=== PATIENT | male | born 1980 | race Caucasian/White ===

== ENCOUNTER 2018-12-13 23:57 | Emergency (ER) | payer BC ==
[2018-12-14] MEDS ORDERED: Sodium Chloride 0.9% 10 ML Syringe FLUSH PRN (00:05)
[2018-12-14] MEDS: Sodium Chloride 0.9% 1,000 ML IV ONE (00:10)
[2018-12-14] MEDS: Ketorolac 30 MG/ML SDV IVPUSH ONE (00:10)
--- NOTE | 2018-12-14 00:11 | EDM.PDOC ---
ED HPI GENERAL MEDICAL PROBLEM - General Chief Complaint: Back Pain or Injury Stated Complaint: back pain Time Seen by Provider: 12/14/18 00:00 Source of Information: Reports: Patient History Limitations: Reports: No Limitations - History of Present Illness INITIAL COMMENTS - FREE TEXT/NARRATIVE: Patient comes in the emergency department with complaint of lower back pain. Patient states started around 3:00 this afternoon spasm sensation. He states they've never had this feeling before. The pain is bilateral on both sides of the back and does not radiate down the leg region. He is unable to get comfortable tonight. He has difficulty sitting or laying flat. He is most comfortable standing. He denies anything that makes it better or worse. He denies any injury. Patient also denies any chest pain, shortness breath, GI upset, urinary tract symptoms, flank pain, or lower extremity swelling. Onset: Sudden Quality: Reports: Other (muscle spasm ) Severity: Moderate Improves with: Reports: None Worsens with: Reports: None Associated Symptoms: Reports: No Other Symptoms Back Pain Score (Numeric/FACES): 10 - Related Data Allergies Allergy/AdvReac Type Severity Reaction Status Date / Time No Known Allergies Allergy Verified 12/13/18 23:58 Home Meds: Home Meds . [No Known Home Meds] 12/13/18 [History] ED ROS GENERAL - Review of Systems Review Of Systems: ROS reveals no pertinent complaints other than HPI. Constitutional: Reports: No Symptoms Respiratory: Reports: No Symptoms Cardiovascular: Reports: No Symptoms GI/Abdominal: Reports: No Symptoms Musculoskeletal: Reports: Back Pain, Muscle Stiffness Skin: Reports: No Symptoms Neurological: Reports: No Symptoms Psychiatric: Reports: No Symptoms Hematologic/Lymphatic: Reports: No Symptoms ED EXAM, GENERAL - Physical Exam Exam: See Below Exam Limited By: No Limitations General Appearance: Alert, WD/WN, No Apparent Distress Head: Atraumatic, Normocephalic Neck: Normal Inspection, Supple, Non-Tender Respiratory/Chest: No Respiratory Distress, Lungs Clear, No Accessory Muscle Use Cardiovascular: Normal Peripheral Pulses, Regular Rate, Rhythm GI/Abdominal: Normal Bowel Sounds, Soft, Non-Tender, No Distention, No Abnormal Bruit Back Exam: Normal Inspection, Decreased Range of Motion, Muscle Spasm (lower lumbar region across the spine ). No: Full Range of Motion, CVA Tenderness (L) , CVA Tenderness (R), Paraspinal Tenderness, Vertebral Tenderness, Other Extremities: Normal Inspection, Normal Range of Motion, Non-Tender, No Pedal Edema, Normal Capillary Refill Neurological: Alert, Oriented, Normal Gait Psychiatric: Normal Affect, Normal Mood Skin Exam: Warm, Dry, Intact Course - Vital Signs Last Recorded V/S: Last Vital Signs Temp 35.3 C 12/13/18 23:59 Pulse 84 12/13/18 23:59 Resp 20 12/13/18 23:59 BP 143/82 H 12/13/18 23:59 Pulse Ox 98 12/13/18 23:59 - Orders/Labs/Meds Orders: Active Orders 24 hr Category Date Time Status Abdomen Pelvis wo Cont [CT] Stat Exams 12/14/18 00:54 Taken Lumbar Spine wo Cont [CT] Stat Exams 12/14/18 00:54 Taken HYDROmorphone [Dilaudid] Med 12/14/18 03:42 Once 0.5 mg IVPUSH ONETIME ONE Sodium Chloride 0.9% [Saline Flush] Med 12/14/18 00:05 Active 10 ml FLUSH ASDIRECTED PRN Peripheral IV Insertion Adult [OM.PC] Stat Oth 12/14/18 00:04 Ordered Medication Orders Sodium Chloride (Saline Flush) 10 ml FLUSH ASDIRECTED PRN PRN Reason: Keep Vein Open Labs: Laboratory Tests 12/14/18 12/14/18 12/14/18 Range/Units 01:04 01:30 01:30 WBC 8.4 (4.0-10.0) x10^3/uL RBC 4.54 (4.5-6.0) x10^6/uL Hgb 13.7 L (14.0-18.0) g/dL Hct 39.3 L (40.0-52.0) % MCV 86.6 (78.0-93.0) fL MCH 30.2 (26.0-32.0) pg MCHC 34.9 (32.0-36.0) g/dL RDW Coeff of Alicia 11.9 (10.0-15.0) % Plt Count 261 (130-400) x10^3/uL Neut % (Auto) 82.3 H (50.0-80.0) % Lymph % (Auto) 12.8 L (25.0-50.0) % [place] % (Auto) 4.2 (2.0-11.0) % Eos % (Auto) 0.5 (0.0-4.0) % Baso % (Auto) 0.2 (0.2-1.2) % Sodium 140 (136-145) mmol/L Potassium 4.0 (3.5-5.1) mmol/L Chloride 103 (98-107) mmol/L Carbon Dioxide 25 (21-32) mmol/L Anion Gap 16.0 (10-20) mmol/L BUN 12 (7-18) mg/dL Creatinine 1.1 (0.70-1.30) mg/dL Est Cr Clr Drug Dosing TNP Estimated GFR (MDRD) > 60 Glucose 96 (74-106) mg/dL Calcium 9.1 (8.5-10.1) mg/dL Corrected Calcium 9.02 (8.5-10.1) mg/dL Total Bilirubin 0.3 (0.2-1.0) mg/dL AST 23 (15-37) U/L ALT 12 L (16-63) U/L Alkaline Phosphatase 66 (46-116) U/L Total Protein 7.8 (6.4-8.2) g/dL Albumin 4.1 (3.4-5.0) g/dL Globulin 3.7 Albumin/Globulin Ratio 1.11 Urine Color Yellow (YELLOW) Urine Appearance Clear (CLEAR) Urine pH 5.5 (5.0-8.0) Ur Specific [place] <=1.005 Urine Protein Negative (NEGATIVE) mg/dL Urine Glucose (UA) Negative (NEGATIVE) mg/dL Urine Ketones Negative (NEGATIVE) mg/dL Urine Occult Blood Negative (NEGATIVE) Urine Nitrite Negative (NEGATIVE) Urine Bilirubin Negative (NEGATIVE) Urine Urobilinogen 0.2 (0.2) EU/dL Ur Leukocyte Esterase Negative (NEGATIVE) Meds: Medications Generic Name Dose Route Start Last Admin Trade Name Freq PRN Reason Stop Dose Admin Sodium Chloride 10 ml 12/14/18 00:05 Saline Flush FLUSH ASDIRECTED PRN Keep Vein Open Discontinued Medications Generic Name Dose Route Start Last Admin Trade Name Freq PRN Reason Stop Dose Admin Diazepam 5 mg 12/14/18 00:51 12/14/18 00:58 Valium IVPUSH 12/14/18 00:52 5 mg STAT ONE Administration Diazepam 5 mg 12/14/18 03:26 Valium IVPUSH 12/14/18 03:27 STAT ONE Hydromorphone HCl 1 mg 12/14/18 00:14 12/14/18 00:20 Dilaudid IVPUSH 12/14/18 00:15 1 mg ONETIME ONE Administration Hydromorphone HCl 1 mg 12/14/18 01:50 12/14/18 01:56 Dilaudid IVPUSH 12/14/18 01:51 1 mg ONETIME ONE Administration Sodium Chloride 1,000 mls @ 1,000 mls/hr 12/14/18 00:06 12/14/18 00:10 Normal Saline IV 12/14/18 01:05 1,000 mls/hr ONETIME ONE Administration Ketorolac Tromethamine 30 mg 12/14/18 00:05 12/14/18 00:10 Toradol IVPUSH 12/14/18 00:06 30 mg ONETIME ONE Administration Orphenadrine Citrate 60 mg 12/14/18 00:05 12/14/18 00:27 Norflex IM 12/14/18 00:06 60 mg NOW STA Administration - Re-Assessments/Exams Free Text/Narrative Re-Assessment/Exam: 12/14/18 01:50 Pt continues to remain in severe pain. unable to get comfortable. Departure - Departure Time of Disposition: 04:28 Disposition: DC/Tfer to Acute Hospital 02 Condition: Fair Clinical Impression: Acute bilateral back pain Qualifiers: Back pain location: low back pain Sciatica presence: without sciatica Qualified Code(s): M54.5 - Low back pain - Discharge Information *PRESCRIPTION DRUG MONITORING PROGRAM REVIEWED*: Not Applicable *COPY OF PRESCRIPTION DRUG MONITORING REPORT IN PATIENT JUAN C: Not Applicable Forms: ED Department Discharge, Interfacility Transfer EMTALA - Problem List Review Problem List Initiated/Reviewed/Updated: Yes - My Orders Last 24 Hours: My Active Orders 12/14/18 00:04 Peripheral IV Insertion Adult [OM.PC] Stat 12/14/18 00:05 Sodium Chloride 0.9% [Saline Flush] 10 ml FLUSH ASDIRECTED PRN 12/14/18 00:54 Abdomen Pelvis wo Cont [CT] Stat Lumbar Spine wo Cont [CT] Stat 12/14/18 03:42 HYDROmorphone [Dilaudid] 0.5 mg IVPUSH ONETIME ONE - Assessment/Plan Last 24 Hours: My Active Orders 12/14/18 00:04 Peripheral IV Insertion Adult [OM.PC] Stat 12/14/18 00:05 Sodium Chloride 0.9% [Saline Flush] 10 ml FLUSH ASDIRECTED PRN 12/14/18 00:54 Abdomen Pelvis wo Cont [CT] Stat Lumbar Spine wo Cont [CT] Stat 12/14/18 03:42 HYDROmorphone [Dilaudid] 0.5 mg IVPUSH ONETIME ONE Assessment:: 1. low back pain Plan: 1. IV inserted with fluids given in the ER. 2. Norflex, Dilaudid, and Toradol given in the ER help with pain and discomfort. 3. Dr. Shelton consulted regarding case since patient continues to appear extremely uncomfortable and not obtaining much relief. His recommendation is to give Valium 5mg now. After spasms continue with the idea of obtaining a CT scan and UA. He also recommended adding a Lumbar spine recon to the order and general labs. 4. 0340 Radiology called due to long delay. they state they had been calling they are needing axial views 5. [address] completed. 6. Consult with [facility] they agreeable with transfer for further evaluation and management. Pt continues to have uncontrolled back pain with no clear reasoning despite pain medications 7. Pt will be transferred by ambulance 8. All questions and concerns addressed prior to discharge.
[2018-12-14] MEDS: HYDROmorphone 1 MG/ML Syringe IVPUSH ONE ×2 (00:20→01:56)
[2018-12-14] MEDS: diazePAM 5 MG/ML MDV IVPUSH ONE ×2 (00:58→03:44)
[2018-12-14 01:59] LABS: CHLORIDE,CL 103 mmol/L (98-107); SODIUM,NA 140 mmol/L (136-145)
[2018-12-14] MEDS ORDERED: HYDROmorphone 1 MG/ML Syringe IVPUSH ONE (03:42)
[2018-12-14] MEDS: fentaNYL 100 MCG/2 ML SDV IVPUSH ONE (03:52)
--- NOTE | 2018-12-14 10:16 | CT ---
[id number] CT/CT Lumbar Spine WO IV EXAM: AP AND LATERAL LUMBAR SPINE. INDICATION: Back pain. COMPARISON: No previous similar exam is available for comparison. FINDINGS: No fracture or subluxation is seen. No evidence of compression deformity. The pedicles are intact. Mild multilevel degenerative changes of the lumbar spine most pronounced at L4-L5 and L5-S1. No CT evidence of high-grade spinal canal or neuroforaminal stenosis. IMPRESSION: NO ACUTE FRACTURE OR SUBLUXATION. Kain Nguyễn DO 12/14/18 1015 Thank you for allowing us to participate in the care of your patient.
--- NOTE | 2018-12-14 10:19 | CT ---
[id number] CT/CT Abdomen Pelvis WO IV EXAM: CT Abdomen Pelvis WO IV CLINICAL DATA: BACK PAIN COMPARISON STUDY: None. FINDINGS: Lung bases are clear. Liver, spleen, gallbladder, pancreas, adrenal glands, and kidneys are unremarkable. No bowel obstruction or inflammation. No lymphadenopathy, free fluid, or pneumoperitoneum. Scattered changes of spondylosis the spine. No fracture or osseous lesion. IMPRESSION: No significant CT abnormality in the abdomen or pelvis to explain the patient's symptoms. Kain Nguyễn DO 12/14/18 1018 Thank you for allowing us to participate in the care of your patient.
== END 2018-12-14 04:57 | disposition short-term general hospital (02) ==
LOC: VM.ED 23:57
DX: M54.5 Low back pain (principal)
CPT/HCPCS: 36415; 72131; 74176; 80053; 81003; 85025; 96361; 96372; 96374; 96375; 96376; 99285; J1170; J1885; J2360; J3010; J3360; J7030

== ENCOUNTER 2021-01-30 14:34 | Emergency (ER) | payer BC ==
[2021-01-30] MEDS ORDERED: Sodium Chloride 0.9% 1,000 ML IV ONE (14:43)
[2021-01-30] MEDS ORDERED: Sodium Chloride 0.9% 10 ML Syringe FLUSH PRN (14:44)
[2021-01-30] MEDS ORDERED: HYDROmorphone 1 MG/ML Syringe IVPUSH ONE ×2 (14:49→15:59)
[2021-01-30] MEDS ORDERED: Ondansetron 4 MG/2 ML SDV IVPUSH ONE (14:49)
--- NOTE | 2021-01-30 14:58 | EDM.PDOC ---
ED HPI GENERAL MEDICAL PROBLEM - General Chief Complaint: Gastrointestinal Problem Stated Complaint: abdominal pain Time Seen by Provider: 01/30/21 14:40 Source of Information: Reports: Patient History Limitations: Reports: No Limitations - History of Present Illness INITIAL COMMENTS - FREE TEXT/NARRATIVE: Patient comes into the emergency department with right upper quadrant abdominal pain. Patient states that it started abruptly last evening after having some ice cream and after a few hours the discomfort and pain away. However then he had a piece of pizza and the pain was excruciating in the right upper quadrant he was unable to get comfortable and to rest. He ended up getting diaphoretic nauseated and vomited multiple times. He states that this lasted for approxi mately 6 hours he is finally able go to bed this morning around 6 AM and woke up without any difficulty. He was feeling well without any difficulties or nauseating or abdominal pain and ended up having a piece of cheese and began to have significant discomfort in the right upper quadrant again leading to nausea and vomiting again. Patient presents to the emergency room department with extreme/severe right upper quadrant pain Onset: Sudden - Related Data Allergies Allergy/AdvReac Type Severity Reaction Status Date / Time No Known Allergies Allergy Verified 12/13/18 23:58 Home Meds: Home Meds . [No Known Home Meds] 12/13/18 [History] Past Medical History - Past Health History Medical/Surgical History: Denies Medical/Surgical History ED ROS GENERAL - Review of Systems Review Of Systems: See Below Constitutional: Reports: No Symptoms HEENT: Reports: No Symptoms Respiratory: Reports: No Symptoms Cardiovascular: Reports: No Symptoms Endocrine: Reports: No Symptoms GI/Abdominal: Reports: Abdominal Pain, Nausea, Vomiting : Reports: No Symptoms Musculoskeletal: Reports: No Symptoms Skin: Reports: No Symptoms Neurological: Reports: No Symptoms Psychiatric: Reports: No Symptoms Hematologic/Lymphatic: Reports: No Symptoms Immunologic: Reports: No Symptoms ED EXAM, GENERAL - Physical Exam Exam: See Below Exam Limited By: No Limitations General Appearance: Alert, WD/WN, No Apparent Distress Head: Atraumatic, Normocephalic Neck: Normal Inspection, Supple, Non-Tender, Full Range of Motion Respiratory/Chest: No Respiratory Distress, Lungs Clear, Normal Breath Sounds, No Accessory Muscle Use, Chest Non-Tender Cardiovascular: Normal Peripheral Pulses, Regular Rate, Rhythm, No Edema, No Murmur GI/Abdominal: Normal Bowel Sounds, Non-Tender, No Distention, No Abnormal Bruit, No Mass Back Exam: Normal Inspection, Full Range of Motion Extremities: Normal Inspection, Normal Range of Motion, Non-Tender, Normal Capillary Refill Neurological: Alert, Oriented, Normal Gait Skin Exam: Warm, Dry, Intact #1 Interpretation EKG Date: 01/30/21 Rhythm: NSR Brinson: Normal P-Wave: Present QRS: Normal ST-T: Normal QT: Normal Comparison: NA - No Prior EKG Course - Orders/Labs/Meds Orders: Active Orders 24 hr Category Date Time Status EKG Documentation Completion [RC] STAT Care 01/30/21 15:05 Active Sodium Chloride 0.9% [Saline Flush] Med 01/30/21 14:44 Active 10 ml FLUSH ASDIRECTED PRN Peripheral IV Insertion Adult [OM.PC] Stat Oth 01/30/21 14:44 Ordered Medication Orders Sodium Chloride (Sodium Chloride 0.9% 10 Ml Syringe) 10 ml FLUSH ASDIRECTED PRN PRN Reason: Keep Vein Open Labs: Laboratory Tests 01/30/21 01/30/21 01/30/21 Range/Units 14:51 14:51 14:51 WBC 11.0 H (4.0-10.0) x10^3/uL RBC 5.14 (4.5-6.0) x10^6/uL Hgb 15.8 D (14.0-18.0) g/dL Hct 43.9 (40.0-52.0) % MCV 85.4 (78.0-93.0) fL MCH 30.7 (26.0-32.0) pg MCHC 36.0 (32.0-36.0) g/dL RDW Coeff of Alicia 12.4 (10.0-15.0) % Plt Count 301 (130-400) x10^3/uL Neut % (Auto) 79.0 (50.0-80.0) % Lymph % (Auto) 12.5 L (25.0-50.0) % [place] % (Auto) 8.0 (2.0-11.0) % Eos % (Auto) 0.4 (0.0-4.0) % Baso % (Auto) 0.1 L (0.2-1.2) % PT 9.7 L (9.9-12.5) SEC INR 0.9 L (2.0-3.5) Sodium 139 (136-145) mmol/L Potassium 3.4 L (3.5-5.1) mmol/L Chloride 104 (98-107) mmol/L Carbon Dioxide 24 (21-32) mmol/L Anion Gap 14.4 (5-15) mmol/L BUN 15 (7-18) mg/dL Creatinine 1.2 (0.70-1.30) mg/dL Est Cr Clr Drug Dosing TNP Estimated GFR (MDRD) > 60 Glucose 99 (70-99) mg/dL Lactic Acid (0.4-2.0) mmol/L Calcium 9.2 (8.5-10.1) mg/dL Corrected Calcium 9.1 (8.5-10.1) mg/dL Total Bilirubin 1.4 H (0.2-1.0) mg/dL AST 93 H (15-37) U/L ALT 67 H (16-63) U/L Alkaline Phosphatase 60 (46-116) U/L C-Reactive Protein 1.1 H (<=0.9) mg/dL Total Protein 7.9 (6.4-8.2) g/dL Albumin 4.1 (3.4-5.0) g/dL Globulin 3.8 Albumin/Globulin Ratio 1.08 Amylase 50 (25-115) U/L Lipase 111 (73-393) U/L /02/12 Range/Units 14:51 WBC (4.0-10.0) x10^3/uL RBC (4.5-6.0) x10^6/uL Hgb (14.0-18.0) g/dL Hct (40.0-52.0) % MCV (78.0-93.0) fL MCH (26.0-32.0) pg MCHC (32.0-36.0) g/dL RDW Coeff of Alicia (10.0-15.0) % Plt Count (130-400) x10^3/uL Neut % (Auto) (50.0-80.0) % Lymph % (Auto) (25.0-50.0) % [place] % (Auto) (2.0-11.0) % Eos % (Auto) (0.0-4.0) % Baso % (Auto) (0.2-1.2) % PT (9.9-12.5) SEC INR (2.0-3.5) Sodium (136-145) mmol/L Potassium (3.5-5.1) mmol/L Chloride (98-107) mmol/L Carbon Dioxide (21-32) mmol/L Anion Gap (5-15) mmol/L BUN (7-18) mg/dL Creatinine (0.70-1.30) mg/dL Est Cr Clr Drug Dosing Estimated GFR (MDRD) Glucose (70-99) mg/dL Lactic Acid 2.2 H* (0.4-2.0) mmol/L Calcium (8.5-10.1) mg/dL Corrected Calcium (8.5-10.1) mg/dL Total Bilirubin (0.2-1.0) mg/dL AST (15-37) U/L ALT (16-63) U/L Alkaline Phosphatase (46-116) U/L C-Reactive Protein (<=0.9) mg/dL Total Protein (6.4-8.2) g/dL Albumin (3.4-5.0) g/dL Globulin Albumin/Globulin Ratio Amylase (25-115) U/L Lipase (73-393) U/L Meds: Medications Generic Name Dose Route Start Last Admin Trade Name Freq PRN Reason Stop Dose Admin Sodium Chloride 10 ml 01/30/21 14:44 Sodium Chloride 0.9% 10 Ml Syringe FLUSH ASDIRECTED PRN Keep Vein Open Discontinued Medications Generic Name Dose Route Start Last Admin Trade Name Freq PRN Reason Stop Dose Admin Ceftriaxone Sodium 1 gm 01/30/21 15:51 Ceftriaxone 1 Gm Vial IVPUSH 01/30/21 15:52 STAT ONE Hydromorphone HCl 1 mg 01/30/21 14:49 01/30/21 14:56 Hydromorphone 1 Mg/Ml Syringe IVPUSH 01/30/21 14:50 1 mg ONETIME ONE Administration Hydromorphone HCl 1 mg 01/30/21 15:59 Hydromorphone 1 Mg/Ml Syringe IVPUSH 01/30/21 16:00 ONETIME ONE Sodium Chloride 1,000 mls @ 1,000 mls/hr 01/30/21 14:43 01/30/21 14:57 Normal Saline IV 01/30/21 15:42 1,000 mls/hr ONETIME ONE Administration Iopamidol 100 ml 01/30/21 15:26 01/30/21 15:27 Iopamidol 612 Mg/Ml 100 Ml Bottle IVPUSH 01/30/21 15:27 100 ml ONETIME ONE Administration Ondansetron HCl 4 mg 01/30/21 14:49 01/30/21 14:56 Ondansetron 4 Mg/2 Ml Sdv IVPUSH 01/30/21 14:50 4 mg ONETIME ONE Administration Departure - Departure Time of Disposition: 16:22 Disposition: DC/Tfer to Acute Hospital 02 Condition: Good Clinical Impression: Cholecystitis - Discharge Information Instructions: Cholecystitis Referrals: PCP,None [Primary Care Provider] - Forms: ED Department Discharge, Interfacility Transfer EMTALA - My Orders Last 24 Hours: My Active Orders 01/30/21 14:44 Sodium Chloride 0.9% [Saline Flush] 10 ml FLUSH ASDIRECTED PRN Peripheral IV Insertion Adult [OM.PC] Stat 01/30/21 15:05 EKG Documentation Completion [RC] STAT - Assessment/Plan Last 24 Hours: My Active Orders 01/30/21 14:44 Sodium Chloride 0.9% [Saline Flush] 10 ml FLUSH ASDIRECTED PRN Peripheral IV Insertion Adult [OM.PC] Stat 01/30/21 15:05 EKG Documentation Completion [RC] STAT Assessment:: 1. abdominal pain 2. Acute cholecystitis Plan: 1. Labs completed in the ER. Results reviewed with the patient 2. CT scan completed in the ER. Results reviewed with the patient 3. IV initiated in the emergency department 4. IV fluids provided 5. Pain medication given for severe pain and discomfort-Dilaudid 2mg total in ER 6. Rocephin given in the ER 7. Zofran given in the ER to help with nausea 8. Consultation completed with-Dr. Myers who has agreed to accept the patient 9. Patient will be transferred to a higher level of care needing further medical and/or surgical interventions 10. Patient and nursing staff was updated regarding the plan of care 11. Patient and family are agreeable to the above plan of care 12. All questions and concerns were addressed with the patient and family prior to discharge
[2021-01-30] MEDS ORDERED: Iopamidol 612 MG/ML 100 ML Bottle IVPUSH ONE (15:26)
[2021-01-30 15:33] LABS: CHLORIDE,CL 104 mmol/L (98-107); SODIUM,NA 139 mmol/L (136-145)
[2021-01-30 15:35] LABS: ANION GAP 14.4 mmol/L (5-15)
--- NOTE | 2021-01-30 15:41 | CT ---
[id number] CT/CT Abdomen Pelvis W IV EXAM: CT Abdomen Pelvis W IV CLINICAL DATA: ABDOMINAL PAIN COMPARISON: CORRELATION IS MADE WITH THE CAT SCAN OF DECEMBER 14, 2018 FINDINGS: The gallbladder is distended The gallbladder wall is thickened. There is fluid surrounding the gallbladder. The liver and spleen, pancreas, adrenals, and aorta are unremarkable There is fluid in the right upper quadrant. There is no free air. The pelvis shows no mass or adenopathy The appendix is normal The appendix is best seen on image 105, series 2 Several loops of small bowel are closely adherent in the left mid abdomen on image 104, series 2 This is currently of uncertain significance If there is left side abdominal pain, consider follow-up CT with oral and IV contrast IMPRESSION: ACUTE CHOLECYSTITIS Jim Oquendo MD 01/30/21 2432 Thank you for allowing us to participate in the care of your patient.
[2021-01-30] MEDS ORDERED: cefTRIAXone 1 GM Vial IVPUSH ONE (15:51)
== END 2021-01-30 16:52 | disposition short-term general hospital (02) ==
LOC: VM.ED 14:34
DX: K81.9 Cholecystitis, unspecified (principal)
CPT/HCPCS: 74177; 80053; 82150; 83605; 83690; 85025; 85610; 86140; 93005; 93010; 96374; 96375; 96376; 99284; 99285-25; J0696; J1170; J2405; J7030; Q9967